=== PATIENT | female | born 1990 | race Caucasian/White ===

== ENCOUNTER 2024-04-21 10:49 | Outpatient (CLI) | payer OTHER | END 2024-04-21 11:39 | disposition home or self-care (01) | LOC: NST 10:49 | PROVIDERS: ATTEND General Practice | DX: Z34.83 Encounter for supervision of other normal pregnancy, third trimester (principal) ==

== ENCOUNTER 2024-04-21 12:51 | Outpatient (CLI) | payer OTHER | END 2024-04-21 12:54 | disposition home or self-care (01) | LOC: PRENATAL 12:51 | PROVIDERS: ATTEND Obstetrics & Gynecology Maternal & Fetal Medicine | DX: O26.849 Uterine size-date discrepancy, unspecified trimester (principal); O36.8199 Decreased fetal movements, unspecified trimester, other fetus; O36.5990 Maternal care for other known or suspected poor fetal growth, unspecified trimester, not applicable or unspecified; O28.3 Abnormal ultrasonic finding on antenatal screening of mother; O24.419 Gestational diabetes mellitus in pregnancy, unspecified control; Z3A.38 38 weeks gestation of pregnancy ==

== ENCOUNTER 2024-04-21 14:00 | Inpatient (IN) | payer OTHER ==
[~2024-04-21] VITALS: Ht 152.4 cm; Wt 74.4 kg
[2024-05-02] MEDS ORDERED: PRENATABS RX T1 EACH PO (08:05)
[2024-05-02] MEDS ORDERED: CHILDREN'S ASPI81 MG PO (08:06)
[2024-05-02 08:31] LABS: URINE APPEARANCE Clear; URINE BILIRRUBIN Negative (NEGATIVE); URINE BLOOD Negative; URINE COLOR Yellow; URINE GLUCOSE Negative (NEGATIVE); URINE LEUKOCYTE Trace; URINE NITRATE Negative; URINE PROTEIN Negative (NEGATIVE); URINE UROBILINOGEN 0.2 E.U./dl
[2024-05-02 08:35] LABS: HEMATOCRIT 35.9 % (36.0-45.00); HEMOGLOBIN 12.1 g/dL (12.0-15.00); MEAN CELL VOLUME 86.3 fL (80.00-100.00); MEAN CORPUSCULAR HEMOGLOBIN 29.2 pg (27.00-32.0); MEAN CORPUSCULAR HGB CONC 33.8 g/dl (32.0-36.0); PLATELET COUNT 194 K/uL (150-450); RED BLOOD COUNT 4.16 M/uL (4.00-6.00); RED CELL DISTRIBUTION WIDTH 15.6 % (11.5-14.5)
[2024-05-02 08:39] LABS: URINE BACTERIA 3993.6 uL (0.0-1933); URINE EPITHELIAL CELLS 29.8 uL (0.0-38.8); URINE RBC 4.4 uL (0.0-20.8); URINE WBC 50.5 uL (0.0-23.2)
[2024-05-02] MEDS ORDERED: MISOPROSTOL 50 MCG TABLET VAG ONE ×2 (08:45→15:00)
[2024-05-02 08:59] LABS: INR < 0.93; PARTIAL THROMBOPLASTIN TIME 25.9 SECONDS (22.0-34.0); PROTHROMBIN TIME 9.2 SECONDS (9.0-11.5)
[2024-05-02 09:05] LABS: ALBUMIN 2.8 gm/dL (3.4-5.0); BILIRUBIN TOTAL 0.36 mg/dL (0.3-1.2); CALCIUM 9.9 mg/dL (8.5-10.1); CREATININE SERUM 0.62 mg/dL (0.55-1.02); GFR 110.19; GLOBULINA 3.6 G/DL (2.4-3.5); POTASSIUM 4.05 mEq/L (3.5-5.1); TOTAL PROTEIN 6.4 gm/dL (6.4-8.2)
[2024-05-02] MEDS ORDERED: CLONAZEPAM0.5 MG (10:36)
[2024-05-02] MEDS ORDERED: ZOLPIDEM TARTRA10 MG (10:36)
[2024-05-02] MEDS ORDERED: FREESTYLE LIBR (10:36)
[2024-05-02] MEDS ORDERED: PROMETHAZINE HCL 25 MG/ML AMPUL IV ONE (17:45)
[2024-05-02] MEDS ORDERED: MEPERIDINE HCL/PF 25 MG/ML VIAL IV ONE (17:45)
[2024-05-02] MEDS ORDERED: ACETAMINOPHEN 500 MG GEL..CAP PO PRN (22:15)
[2024-05-02] MEDS ORDERED: OXYTOCIN 1,000 ML IV SCH (22:15)
[2024-05-02] MEDS ORDERED: IBUprofen 400 MG TABLET PO PRN (22:15)
[2024-05-02] MEDS ORDERED: CHLORHEXIDINE GLUCONATE 120 ML BOTTLE TOP SCH (22:15)
[2024-05-02] MEDS ORDERED: ERYTHROMYCIN BASE 1 GM TUBE OP SCH (22:15)
[2024-05-03] MEDS ORDERED: PNV,CALCIUM 72/IRON/FOLIC ACID 1 TAB TABLET PO SCH (09:00)
[2024-05-03] MEDS ORDERED: DOCUSATE SODIUM 100MG CAP PO SCH (09:00)
[2024-05-03 19:38] LABS: HEMATOCRIT 30.5 % (36.0-45.00); HEMOGLOBIN 10.2 g/dL (12.0-15.00); MEAN CELL VOLUME 86.7 fL (80.00-100.00); MEAN CORPUSCULAR HEMOGLOBIN 28.9 pg (27.00-32.0); MEAN CORPUSCULAR HGB CONC 33.3 g/dl (32.0-36.0); PLATELET COUNT 191 K/uL (150-450); RED BLOOD COUNT 3.52 M/uL (4.00-6.00)
== END 2024-05-04 15:39 | disposition home or self-care (01) | DRG 807 ==
LOC: OB/GYN 05-02 07:57 → LDR 05-02 07:57 → OB/GYN 05-02 22:23
PROVIDERS: ADMIT General Practice; ATTEND General Practice
PROC: 10E0XZZ Delivery of Products of Conception, External Approach (ICD-10-PCS; principal; 2024-05-02)
PROC: 0W8NXZZ Division of Female Perineum, External Approach (ICD-10-PCS; 2024-05-02)
PROC: 4A1HXCZ Monitoring of Products of Conception, Cardiac Rate, External Approach (ICD-10-PCS; 2024-05-02)
DX: O80 Encounter for full-term uncomplicated delivery (principal); Z37.0 Single live birth; Z3A.39 39 weeks gestation of pregnancy; Z20.822 Contact with and (suspected) exposure to COVID-19

== ENCOUNTER 2024-04-26 10:41 | Outpatient (CLI) | payer OTHER | END 2024-04-26 12:19 | disposition home or self-care (01) | LOC: NST 10:41 | PROVIDERS: ATTEND General Practice | DX: Z34.83 Encounter for supervision of other normal pregnancy, third trimester (principal) ==

== ENCOUNTER → 2025-05-30 12:58 | Outpatient (CLI) | payer OTHER ==
[~2025-05-30 12:58] MED LIST: CHILDREN'S ASPI81 MG PO; CLONAZEPAM0.5 MG; FREESTYLE LIBR; PRENATABS RX T1 EACH PO; ZOLPIDEM TARTRA10 MG
== END | disposition home or self-care (01) ==
LOC: PRENATAL 12:58
PROVIDERS: ATTEND Obstetrics & Gynecology Maternal & Fetal Medicine
DX: O36.80X0 Pregnancy with inconclusive fetal viability, not applicable or unspecified (principal); Z36.82 Encounter for antenatal screening for nuchal translucency; O09.529 Supervision of elderly multigravida, unspecified trimester; O24.419 Gestational diabetes mellitus in pregnancy, unspecified control; Z3A.13 13 weeks gestation of pregnancy

== ENCOUNTER → 2025-09-07 09:29 | Outpatient (CLI) | payer OTHER | END | disposition home or self-care (01) | LOC: PRENATAL 09:29 | PROVIDERS: ATTEND Obstetrics & Gynecology Maternal & Fetal Medicine | DX: O26.842 Uterine size-date discrepancy, second trimester (principal); O44.02 Complete placenta previa NOS or without hemorrhage, second trimester; O09.522 Supervision of elderly multigravida, second trimester; O24.419 Gestational diabetes mellitus in pregnancy, unspecified control; O28.3 Abnormal ultrasonic finding on antenatal screening of mother; Z3A.27 27 weeks gestation of pregnancy ==

== ENCOUNTER 2025-10-24 08:50 | Outpatient (CLI) | payer OTHER | END 2025-10-24 08:51 | disposition home or self-care (01) | LOC: PRENATAL 08:50 | PROVIDERS: ATTEND Obstetrics & Gynecology Maternal & Fetal Medicine | DX: O26.843 Uterine size-date discrepancy, third trimester (principal); O36.8130 Decreased fetal movements, third trimester, not applicable or unspecified; O09.523 Supervision of elderly multigravida, third trimester; O24.419 Gestational diabetes mellitus in pregnancy, unspecified control; O28.3 Abnormal ultrasonic finding on antenatal screening of mother; Z3A.33 33 weeks gestation of pregnancy ==